=== PATIENT | male | born 1960 | race Caucasian/White ===

== ENCOUNTER 2020-02-29 06:59 | Day surgery (SDC) | payer BC ==
[~2020-02-29 06:59] MED LIST: Lactated Ringers 1,000 ML IV SCH; Sodium Chloride 0.9% 10 ML Syringe FLUSH PRN
[2020-02-29] MEDS ORDERED: Propofol 200 MG/20 ML SDV IV ONE (07:00)
--- NOTE | 2020-02-29 08:29 | PCM.PN ---
- General Info Date of Service: 02/29/20 - Review of Systems Systems Review Comment:: 60 y/op male with family history of colon cancer in brother and history of polyps here for colonoscopy. He is medically stable to proceed. His recent H and P is reviewed and no significant changes are noted. I have discussed the proposed colonoscopy with the patient. Risks such as but not limited to bleeding and GI injury are discussed and he agrees to proceed. - Patient Data Vitals - Most Recent: Last Vital Signs Temp 98.1 F 02/29/20 07:28 Pulse 91 02/29/20 07:28 Resp 16 02/29/20 07:28 BP 109/78 02/29/20 07:28 Pulse Ox 100 02/29/20 07:28 Weight - Most Recent: 158 lb 15.253 oz Med Orders - Current: Current Medications Lactated Ringer's (Ringers, Lactated) 1,000 mls @ 125 mls/hr IV ASDIRECTED DARSHANA Last Admin: 02/29/20 07:33 Dose: 125 mls/hr Documented by: Sodium Chloride (Saline Flush) 10 ml FLUSH ASDIRECTED PRN PRN Reason: Keep Vein Open Sepsis Event Note - Focused Exam Vital Signs: Vital Signs Temp Pulse Resp BP Pulse Ox 02/29/20 07:28 98.1 F 91 16 109/78 100 - Problem List Review Problem List Initiated/Reviewed/Updated: Yes - My Orders Last 24 Hours: My Active Orders 02/28/20 Dinner Nothing Per Oral Diet [DIET] 02/29/20 06:45 Patient Status [ADT] Routine Patient to Empty Bladder [RC] ASDIRECTED Verify Patient Consent Obtain [RC] ASDIRECTED Lactated Ringers [Ringers, Lactated] 1,000 ml IV ASDIRECTED Sodium Chloride 0.9% [Saline Flush] 10 ml FLUSH ASDIRECTED PRN Peripheral IV Insertion Adult [OM.PC] Routine - Assessment Assessment:: Family history of colon cancer Personal history of colon polyps - Plan Plan:: Colonoscopy
--- NOTE | 2020-02-29 09:05 | PCM.OPNOTE ---
- General Post-Op/Procedure Note Date of Surgery/Procedure: 02/29/20 Operative Procedure(s): Colonoscopy with Polypectomy Findings: Multiple polyps in distal colon Moderate Sigmoid Diverticulosis Pre Op Diagnosis: History of colon polyps Post-Op Diagnosis: Colon Polyps. Sigmoid Diverticulosis Anesthesia Technique: MAC Primary Surgeon: Renzo Erickson Pathology: Colon Polyps EBL in mLs: 0 Complications: None Condition: Good
--- NOTE | 2020-02-29 11:54 | OR ---
DATE OF OPERATION: 02/29/2020 SURGEON: Renzo Erickson MD PREOPERATIVE DIAGNOSES: History of colon polyps, family history of colon cancer. POSTOPERATIVE DIAGNOSES: Colon polyps, sigmoid diverticulosis. OPERATION PERFORMED: Colonoscopy with polypectomy. INDICATIONS FOR SURGERY: This 60-year-old male is here for surveillance colonoscopy. He has a personal history of colon polyps. He also has a family history of colon cancer in his brother. FINDINGS: Polyps are noted in 3 areas of the colon today. There was a 5 mm semipedunculated polyp in the rectum, 5 cm from the anal verge. There is a cluster of 3 polyps ranging in size from 3 to 5 mm in the sigmoid colon, 15 cm from the anal verge and there is a semipedunculated polyp, 9 mm in size in the sigmoid colon, 35 cm some the anal verge. There is also moderate degree of diverticulosis in the sigmoid region, which does not appear to be otherwise complicated. The remainder of the colon appears normal. PROCEDURE IN DETAIL: The patient was taken to the operating room. He was given intravenous sedation, and with him in the left lateral decubitus position, digital rectal exam was performed showing no rectal masses. The Olympus colonoscope was inserted into the rectum. Retroflexed examination of the rectal canal was performed. The scope was then carefully advanced under direct visualization through the entire length of the colon until the cecum was reached. Cecal acquisition was confirmed by noting the normal internal cecal anatomy including the appendiceal orifice and the ileocecal valve. The light was also noted to transilluminate the abdominal wall in the right lower quadrant. During insertion of the scope, the above-described polyps were identified. These are each removed with a cautery snare and retrieved into a polyp trap. The small polyps at the 15 cm level were primarily destroyed with the cautery, although there was a small fragment of tissue retrieved from this area as well. After the cecum had been carefully examined, the scope was withdrawn, sequentially re-examining the colonic segments, and after the entire colon and rectum had been fully examined and with no sign of any complication, the scope was removed and the patient was taken from the operating room in satisfactory condition. ESTIMATED BLOOD LOSS: 0. COMPLICATIONS: None. PROGNOSIS: Good. /[id number] JENNIFER/AMERICO
== END 2020-02-29 10:25 | disposition home or self-care (01) ==
LOC: FB.SDS 06:59
PROVIDERS: ATTEND Surgery
DX: Z12.11 Encounter for screening for malignant neoplasm of colon (principal); D12.8 Benign neoplasm of rectum; D12.5 Benign neoplasm of sigmoid colon; F17.210 Nicotine dependence, cigarettes, uncomplicated; K57.30 Diverticulosis of large intestine without perforation or abscess without bleeding; Z86.010 Personal history of colon polyps; Z80.0 Family history of malignant neoplasm of digestive organs; Z98.890 Other specified postprocedural states; Z86.69 Personal history of other diseases of the nervous system and sense organs
CPT/HCPCS: 00811; 45385; 88305; J2704; J7120

== ENCOUNTER 2023-03-25 08:09 | Day surgery (SDC) | payer BC ==
[2023-03-25] MEDS ORDERED: Propofol 200 MG/20 ML SDV IV ONE (08:10)
[2023-03-25] MEDS ORDERED: Lidocaine 2% 5 ML SDV IV ONE (08:10)
[2023-03-25] MEDS ORDERED: Sodium Chloride 0.9% 10 ML Syringe FLUSH PRN (08:30)
[2023-03-25] MEDS ORDERED: Lactated Ringers 1,000 ML IV SCH (08:30)
[2023-03-25] MEDS ORDERED: Simethicone Drops 40 MG/0.6 ML 30 ML Bottle PO ONE (10:15)
== END 2023-03-25 11:32 | disposition home or self-care (01) ==
LOC: FB.SDS 08:09
PROVIDERS: ATTEND Surgery
DX: Z12.11 Encounter for screening for malignant neoplasm of colon (principal); E78.5 Hyperlipidemia, unspecified; F17.210 Nicotine dependence, cigarettes, uncomplicated; Z79.899 Other long term (current) drug therapy; Z86.010 Personal history of colon polyps; Z80.0 Family history of malignant neoplasm of digestive organs
CPT/HCPCS: 00812; 45378; A9270; J2704; J7120